=== PATIENT | female | born 1995 | race Caucasian/White ===

== ENCOUNTER → 2020-08-28 15:52 | Outpatient (CLI) | payer BC, SELFPAY ==
[2020-08-28 14:58] VITALS: BMI 20.9
[2020-08-28 16:05] LABS: Absolute Lymphocyte Count 1.63 X10^3/uL (0.83-4.51); Basophil# 0.03 X10^3/uL; Basophil% 0.3 % (0-1); Eosinophil# 0.03 X10^3/uL; Eosinophils% 0.3 % (0-5); Hematocrit 35.6 % (37-47); Hemoglobin 11.8 g/dL (12.0-15.0); Lymphocyte # 1.63 X10^3/ul (4.0); Mean Corp Hgb Conc 33.1 g/dL (32-36); Mean Corpuscular Hgb 29.3 pg (27.0-32.0); Mean Corpuscular Volume 88.3 fL (81-99); Mean Platelet Vol. 9.3 fl (6.2-12.0); Monocyte# 0.89 X10^3/uL; Monocyte% 7.6 % (0-10); NRBC Flagged by Analyzer 0 % (0-5); Neutrophil # 9.04 X10^3/uL (2.7-7.7); Neutrophil % 77.5 % (47-70); Platelet Count 194 K/mm3 (150-450); RBC Distribution Width CV 12.8 % (11.6-14.6); RBC Distribution Width SD 41.7 fl (35.1-43.9); Red Blood Count 4.03 M/mm3 (4.2-5.4); White Blood Count 11.7 K/mm3 (4.4-11.0)
[2020-08-28 17:53] LABS: Amphetamine Urine VISTA NEGATIVE (<1000 ng/mL); Barbiturate Urine VISTA NEGATIVE (< 200 ng/mL); Benzodiazepine Urine VISTA NEGATIVE (< 200 ng/mL); Cocaine Urine VISTA NEGATIVE (< 300 ng/mL); Ecstacy Urine VISTA NEGATIVE (< 500 ng/mL); Methadone Urine VISTA NEGATIVE (< 300 ng/mL); PCP Urine VISTA NEGATIVE (< 25 ng/mL); THC Urine VISTA NEGATIVE (< 50 ng/mL); Vista UDS pH Range 6
[2020-08-29 09:16] LABS: HIV - WCH Non-Reactive (Nonreactive); Hepatitis B Surface Antigen Non-Reactive (Nonreactive); Hepatitis C Antibody Non-Reactive (Nonreactive); Rubella IgG Reactive (Nonreactive)
[2020-08-29 13:38] LABS: Syphilis Antibodies Non-reactive
[2020-08-31 03:07] LABS: Chlamydia By Nucleic Acid AMP Negative (Negative)
[2020-08-31 13:15] LABS: Gonococcus By Nucleic Acid AMP Negative (Negative)
[2020-09-02 15:53] LABS: HPV Reflexed? NOT INDICATED
== END ==
PROVIDERS: Referring Provider Obstetrics & Gynecology; Visit Provider Obstetrics & Gynecology
DX: Z34.00 Encounter for supervision of normal first pregnancy, unspecified trimester (principal); Z12.4 Encounter for screening for malignant neoplasm of cervix
CPT/HCPCS: 36415; 80307; 85025; 86703; 86762; 86803; 86850; 86900; 86901; 87086; 87088; 87340; 87491; 87591; 88175; G0145

== ENCOUNTER → 2021-01-03 14:29 | Outpatient (CLI) | payer BC, SELFPAY ==
[2020-12-20 14:38] VITALS: BMI 22.6
[2021-01-03 15:42] LABS: Absolute Lymphocyte Count 1.18 X10^3/uL (0.83-4.51); Absolute Neutrophil Count 8.1 X10^3/uL (2.0-7.7); Basophil# 0.03 X10^3/uL; Basophil% 0.3 % (0-1); Eosinophil# 0.05 X10^3/uL; Eosinophils% 0.5 % (0-5); Hematocrit 32.1 % (37-47); Hemoglobin 10.5 g/dL (12.0-15.0); Lymphocyte # 1.18 X10^3/ul (0.83-4.51); Lymphocyte % 11.7 % (19-41); Mean Corp Hgb Conc 32.7 g/dL (32-36); Mean Corpuscular Hgb 29.6 pg (27.0-32.0); Mean Corpuscular Volume 90.4 fL (81-99); Mean Platelet Vol. 9.4 fl (6.2-12.0); Monocyte# 0.64 X10^3/uL; Monocyte% 6.3 % (0-10); NRBC Flagged by Analyzer 0 % (0-5); Neutrophil # 8.09 X10^3/uL (2.7-7.7); Platelet Count 205 K/mm3 (150-450); RBC Distribution Width CV 12.1 % (11.6-14.6); RBC Distribution Width SD 40.1 fl (35.1-43.9); Red Blood Count 3.55 M/mm3 (4.2-5.4); White Blood Count 10.1 K/mm3 (4.4-11.0)
[2021-01-03 16:07] LABS: Glucose Challenge Gest 1H 50g 109 mg/dL (70-140)
== END ==
PROVIDERS: Obstetrics & Gynecology; Referring Provider Obstetrics & Gynecology; Visit Provider Obstetrics & Gynecology
DX: Z34.92 Encounter for supervision of normal pregnancy, unspecified, second trimester (principal); Z13.1 Encounter for screening for diabetes mellitus; Z3A.26 26 weeks gestation of pregnancy
CPT/HCPCS: 36415; 82950; 85025; 86850; 86900; 86901

== ENCOUNTER → 2021-01-30 15:02 | Outpatient (CLI) | payer BC, SELFPAY ==
[2021-01-16 09:17] VITALS: BMI 23.6
[2021-01-30 15:30] LABS: Absolute Lymphocyte Count 1.25 X10^3/uL (0.83-4.51); Absolute Neutrophil Count 6.3 X10^3/uL (2.0-7.7); Basophil# 0.03 X10^3/uL; Basophil% 0.4 % (0-1); Eosinophil# 0.06 X10^3/uL; Eosinophils% 0.7 % (0-5); Hematocrit 32.3 % (37-47); Hemoglobin 10.8 g/dL (12.0-15.0); Lymphocyte # 1.25 X10^3/ul (0.83-4.51); Lymphocyte % 14.6 % (19-41); Mean Corp Hgb Conc 33.4 g/dL (32-36); Mean Corpuscular Hgb 30.5 pg (27.0-32.0); Mean Corpuscular Volume 91.2 fL (81-99); Mean Platelet Vol. 9.1 fl (6.2-12.0); Monocyte# 0.76 X10^3/uL; Monocyte% 8.9 % (0-10); NRBC Flagged by Analyzer 0 % (0-5); Neutrophil # 6.33 X10^3/uL (2.7-7.7); Neutrophil % 74.1 % (47-70); Platelet Count 164 K/mm3 (150-450); RBC Distribution Width CV 13.6 % (11.6-14.6); RBC Distribution Width SD 45.3 fl (35.1-43.9); Red Blood Count 3.54 M/mm3 (4.2-5.4); White Blood Count 8.5 K/mm3 (4.4-11.0)
== END ==
PROVIDERS: Referring Provider Obstetrics & Gynecology; Visit Provider Obstetrics & Gynecology
DX: O99.019 Anemia complicating pregnancy, unspecified trimester (principal); D64.9 Anemia, unspecified; Z3A.00 Weeks of gestation of pregnancy not specified
CPT/HCPCS: 36415; 85025

== ENCOUNTER → 2021-02-28 | Outpatient (CLI) | payer BC, SELFPAY | END | disposition home or self-care (01) | LOC: LABSPEC 16:39 | PROVIDERS: Visit Provider Obstetrics & Gynecology | DX: Z34.02 Encounter for supervision of normal first pregnancy, second trimester (principal) | CPT/HCPCS: 87081 ==

== ENCOUNTER 2021-03-17 19:05 | Inpatient (IN) | payer BC, SELFPAY ==
[2021-03-17] VITALS (7 sets, daily range): BP systolic 110–139; BP diastolic 66–81; PULSE 61–118; TEMP 36.3–37.5; O2SAT 85–99; BMI 23.3
[2021-03-17 19:04] LABS: ROM Internal Control Test YES-OK TO RESULT pt. (Internal QC)
[2021-03-17 19:06] LABS: ROM Patient Test POSITIVE (Negative)
[2021-03-17 19:51] LABS: Absolute Neutrophil Count 8.9 X10^3/uL (2.0-7.7); Basophil# 0.02 X10^3/uL; Basophil% 0.2 % (0-1); Eosinophil# 0.04 X10^3/uL; Eosinophils% 0.3 % (0-5); Hematocrit 36.6 % (37-47); Hemoglobin 12.2 g/dL (12.0-15.0); Lymphocyte % 13.1 % (19-41); Mean Corp Hgb Conc 33.3 g/dL (32-36); Mean Corpuscular Hgb 30.4 pg (27.0-32.0); Mean Corpuscular Volume 91.3 fL (81-99); Mean Platelet Vol. 9.5 fl (6.2-12.0); Monocyte% 7.9 % (0-10); NRBC Flagged by Analyzer 0 % (0-5); Neutrophil # 8.87 X10^3/uL (2.7-7.7); Neutrophil % 77.6 % (47-70); Platelet Count 196 K/mm3 (150-450); RBC Distribution Width CV 13.4 % (11.6-14.6); RBC Distribution Width SD 44.5 fl (35.1-43.9); Red Blood Count 4.01 M/mm3 (4.2-5.4); White Blood Count 11.4 K/mm3 (4.4-11.0)
--- NOTE | 2021-03-17 20:12 | HP.PCM.OB_ITS ---
HPI - General General Date of Admission: 03/17/21 HPI Narrative JACE MARTINEZ, is a 26 F at 39 weeks 2 days who presents with rupture of membranes Maternal Data Information LOLA Calculator Estimated Delivery Date Method Current WG Current Estimate 03/22/21 Ultrasound #1 39w 2d Other Estimates 03/30/21 LMP (Certain) 38w 1d PFSH PFS Medical History Anemia affecting Asthma Home Medications multivitamin no.47-iron fum 27 mg-folate no.1 1 mg-dha 300 mg capsule 1 cap PO DAILY 08/21/20 [History Last Taken 1 Day Ago ~03/16/21] breast pump #1 ea 11/21/20 [Rx Last Taken Unknown] ferrous sulfate 250 mg (50 mg iron) tablet,extended release 250 mg PO DAILY 01/16/21 [History Last Taken 1 Day Ago ~03/16/21] Allergy/AdvReac Type Severity Reaction Status Date / Time No Known Allergies Allergy Verified 03/17/21 19:30 Family History Mother Breast cancer, Onset Age: 36 BRAC was negative Surgical History No significant past surgical history Social History adopted: No household members: spouse housing: house current occupational status: employed current occupation: [employer] pets and animals: Yes Smoking Status: Never smoker second hand exposure: No alcohol intake: current alcohol intake frequency: holidays/special occasions only substance use type: does not use seatbelt use: always do you feel safe at home: Yes additional social history: - Faby ([employer]) History 1 Elective abortions Hx Para 0 Spontaneous abortions Hx # Term Pregnancies Ectopic pregnancies Hx # Pregnancies Multiple births # of living children Visit Details Expected Delivery Route/Plan Labor Preferences- CB/BF classes: done labor support person: faby, mom maybe after- Elise labor intervention preferences: discussed and no specific pain management options preferred: epidural cut cord/dad catch: yes : yes PP control planned: considering mini pill discussed possible routes of delivery and associated risks: discussed possible delivery modalities and possible indications for each including R/B/A of , VAVD, and CS. questions answered. special requests: none Plans covid vaccine: non immune flu vaccine: tdap vaccine: given rhogam: [] LARC form signed: 01/16 movement and labor precautions reviewed. Problem list reviewed and updated with the most current plan of care details and appropriate orders placed. Relevant counseling for the gestational age provided. Continue routine care and follow up unless otherwise noted in visit notes/problem list details OB Flowsheet Initial Weight: 125 lb Date -?-?-?-?-?-?-?-?-?-?-?-?- EGA Weight BP Urine Prot -?-?-?--?-?-?-?-?-?-?-?-?- Glucose FHR FuHt Pres Dilation -?-?-?-?-?-?-?-?-?--?-?-?- Effaced St Visit Note 09/26/20 -?-?-?-?-?-?-?-?-?-?-?-?- 14w 5d 125 lb 6 oz (+6 oz) 120/74 -?-?-?-?-?-?-?-?-?-?-?-?- 155 -?-?-?-?-?-?-?-?-?-?-?-?- GP - no cramping or bleeding. Feeling better aside from fatigue. PRR. Anatomy scan ordered. 10/24/20 -?-?-?-?-?-?-?-?-?-?-?-?- 18w 5d 129 lb (+4 lb) Negative -?-?-?-?-?-?-?-?-?-?-?-?- Negative 145 -?-?-?-?-?-?-?-?-?-?-?-?- SM- doing well n o complaints 11/21/20 -?-?-?-?-?-?-?-?-?-?-?-?- 22w 5d 132 lb (+7 lb) 120/78 Negative -?-?-?-?-?-?-?-?-?-?-?-?- Negative 150 -?-?-?-?-?-?-?-?-?-?-?-?- GP - no ctx, LOF , VB, DFM. Discussed 3rd trimester labs - needs at 28w due to Rh negative 12/20/20 -?-?-?-?-?-?-?-?-?-?-?-?- 26w 6d 136 lb (+11 lb) 128/60 Negative -?-?-?-?-?-?-?-?-?-?-?-?- Negative 160 -?-?-?-?-?-?-?-?-?-?-?-?- SM- no vb lof go od fm no regular ctx. 01/03/21 -?-?-?-?-?-?-?-?-?-?-?-?- 28w 6d 137 lb 6 oz (+12 lb 6 oz) 132/72 Negative -?-?-?-?-?-?-?-?-?-?-?-?- Negative 140 28 -?-?-?-?-?-?-?-?-?-?-?-?- GP - no LOF, VB, DFM, ctx. Denies complaints. 28w labs pending. Rhogam and TDAP given but reports spouse also Rh negative. 01/16/21 -?-?-?-?-?-?-?-?-?-?-?-?- 30w 5d 138 lb (+13 lb) 124/78 124/78 -?-?-?-?-?-?-?-?-?-?-?-?- 145 30 -?-?-?-?-?-?-?-?-?-?-?-?- GP - no LOF, VB, DFM, ctx. Discussed control - LARC form signed. 01/30/21 -?-?-?-?-?-?-?-?-?-?-?-?- 32w 5d 140 lb 4 oz (+15 lb 4 oz) 138/70 Negative -?-?-?-?-?-?-?-?-?-?-?-?- Negative 140 32 -?-?--?-?-?-?-?-?-?-?-?-?- GP - no LOF, VB, DFM, ctx. Has red, raised lesion that appeared 2w ago - referred to derm 02/14/21 -?-?-?-?-?-?-?-?-?-?-?-?- 34w 6d 140 lb (+15 lb) 100/60 Negative -?-?-?-?-?-?-?-?-?-?-?-?- Negative 140 34 -?-?-?-?-?-?-?-?-?-?-?-?- SM- no vb lof go od fm no regular ctx discussed delivery and labor preferences, vaccination information 02/28/21 -?-?-?-?-?-?-?-?-?-?-?-?- 36w 6d 142 lb (+17 lb) 120/78 Negative -?-?-?-?-?-?-?-?-?-?-?-?- Negative 145 36 -?-?-?-?-?-?-?-?-?-?-?-?- GP - no LOF, VB, DFM, ctx. Denies complaints. GBS done today. 03/07/21 -?-?--?-?-?-?-?-?-?-?-?-?- 37w 6d 144 lb 6 oz (+19 lb 6 oz) 120/76 Negative -?-?-?-?-?-?-?-?-?-?-?-?- Negative 155 37 Cephalic 1 -?-?-?-?-?-?-?-?-?-?-?-?- 50 -3 GP - no LO F, VB, DFM, ctx. Denies complaints. 03/13/21 -?-?-?-?-?-?-?-?-?-?-?-?- 38w 5d 144 lb 4 oz (+19 lb 4 oz) 128/80 -?-?-?-?-?-?-?-?-?-?-?-?- 155 38 Cephalic 1 -?-?-?-?-?-?-?-?-?-?-?-?- 50 -3 GP - no LO F, VB, DFM, ctx. 03/17/21 -?-?-?-?-?-?-?-?--?-?-?-?- 39w 2d 140 lb (+15 lb) 115/68 -?-?-?-?-?-?-?-?-?-?-?-?- -?-?-?-?-?-?-?-?-?-?-?-?- NST FHR Rate Baby A Baseline: 140 Variability:: Moderate Accelerations:: 15 x 15 Decelerations:: None NST Reactive:: Yes FHR Category:: Category I Uterine Activity:: irregular ROS Eyes Eyes: Reports systems reviewed and no addt'l complaints, except as documented ENT HEENT: Reports systems reviewed and no addt'l complaints, except as documented Cardiovascular Cardiovascular: Reports systems reviewed and no addt'l complaints, except as documented Respiratory/Chest Respiratory/Chest: Reports systems reviewed and no addt'l complaints, except as documented Gastrointestinal Gastrointestinal: Reports systems reviewed and no addt'l complaints, except as documented Genitourinary Genitourinary: Reports systems reviewed and no addt'l complaints, except as documented Musculoskeletal Musculoskeletal: Reports systems reviewed and no addt'l complaints, except as documented Integumentary Integumentary: Reports systems reviewed and no addt'l complaints, except as documented Neurologic Neurologic: Reports systems reviewed and no addt'l complaints, except as documented Psychiatric Psychiatric: Reports systems reviewed and no addt'l complaints, except as documented Endocrine Endocrinology: Reports systems reviewed and no addt'l complaints, except as documented Hematologic/Lymphatic Hematologic/Lymphatic: Reports systems reviewed and no addt'l complaints, except as documented Allergic/Immunologic Allergic/Immunologic: Reports systems reviewed and no addt'l complaints, except as documented Vital Signs Vital Signs Vital Signs: 03/17/21 20:00 03/17/21 20:01 Temperature 99.5 F H Temperature Source Temporal Pulse Rate 74 Blood Pressure 115/68 BP Systolic 115 BP Diastolic 68 Weight Weight: 140 lb Body Mass Index (BMI) 23.3 Physical Exam Const alert, oriented x3, no apparent distress, average body habitus, healthy appearing and well nourished HEENT normocephalic and moist oral mucous membranes Head and Scalp: atraumatic Eyes PERRL and EOMs intact bilaterally Neck full ROM Resp normal respiratory effort, no retractions and no use of accessory muscles Cardio regular rate and regular rhythm GI soft to palpation, non-tender and non-distended Extremity normal to inspection and full ROM Skin no rashes or lesions noted Neuro no focal motor deficits and no sensory deficits noted Psych mental status grossly normal, affect normal, speech normal and activity/motor behavior normal Labs Labs Labs: Blood Type A NEGATIVE Antibody Screen NEGATIVE Hct 36.6 % (37-47) L Hgb 12.2 g/dL (12.0-15.0) Syphilis Total Ab Non-reactive Rubella IgG Antibody Reactive (Nonreactive) Hep Bs Antigen Non-Reactive (Nonreactive) Neisseria gonorrhoeae DNA (WARNER) Negative (Negative) HIV 1&2 Antibody Non-Reactive (Nonreactive) Glucose 1 Hr 50 gm 109 mg/dL (70-140) Assessment & Plan (1) Full-term premature rupture of membranes: QUALIFIERS: PROM onset of labor timing: unspecified duration between rupture of membranes and onset of labor Qualified Code(s): O42.92 - Full-term premature rupture of membranes, unspecified as to length of time between rupture and onset of labor PLAN: Patient presents with term PROM, plan expectant management for , pitocin if needed. Pain management: plans epidural. GBS negative. Management of any complications: none I have reviewed the [facility], [facility] and made any clinically relevant updates. (2) Skin lesion: COMMENT: New onset lesion on right arm that appeared 2 weeks ago. Raised and red in appearance. Has had multiple episodes of bleeding. Removed by dermatology (3) Anemia affecting : QUALIFIERS: Trimester: third trimester Qualified Code(s): O99.013 - Anemia complicating , third trimester COMMENT: Start iron, recheck cbc in 1 month (4) Rh negative status during : QUALIFIERS: Trimester: third trimester Qualified Code(s): O26.893 - Other specified related conditions, third trimester; Z67.91 - Unspecified blood type, Rh negative COMMENT: rhogam at 28 weeks and PRN bleeding. (5) Supervision of normal first : QUALIFIERS: Trimester: second trimester Qualified Code(s): Z34.02 - Encounter for supervision of normal first , second trimester COMMENT: PRR [place]! LOLA: 03/30/21 surprise Spouse: Faby (6) Asthma: QUALIFIERS: Asthma severity: mild Asthma persistence: intermittent Asthma complication type: uncomplicated Qualified Code(s): J45.20 - Mild intermittent asthma, uncomplicated COMMENT: no active symptoms, resolved since age 15 (7) : QUALIFIERS: Weeks of gestation: 38 weeks Qualified Code(s): Z3A.38 - 38 weeks gestation of COMMENT: declines genetic, ntd, and carrier testing 10/31/20 - NL anatomy scan; GBS NEG
[2021-03-17] MEDS: Lactated Ringers 1,000 ML 50 ML IV (22:02)
[2021-03-17] MEDS: Oxytocin 30 units/NS 500 ml 30 UNITS/500 ML IV.SOLN IV (22:02)
[2021-03-18] VITALS (64 sets, daily range): BP systolic 76–138; BP diastolic 52–78; PULSE 53–106; RESP 14–18; TEMP 36.7–37.9; O2SAT 84–100
[2021-03-18] MEDS: Acetaminophen 500 MG Tablet PO (03:45)
[2021-03-18] MEDS: Ondansetron 4 MG/2 ML Vial IV (05:57)
[2021-03-18] MEDS: Lactated Ringers 500 ML 999 ML IV (06:19)
[2021-03-18] MEDS: fentaNYL-bupivacaine (epidural) 100 ML BAG EPIDURAL ×2 (06:59→11:08)
[2021-03-18] MEDS: Lactated Ringers 1,000 ML 200 ML IV (09:54)
[2021-03-18] MEDS: Oxytocin 30 units/NS 500 ml 30 UNITS/500 ML IV.SOLN 334 UNITS IV (15:25)
--- NOTE | 2021-03-18 15:38 | EX.PCM.OBRPT ---
Assessment & Plan (1) Spontaneous vaginal delivery: (2) Full-term premature rupture of membranes: QUALIFIERS: PROM onset of labor timing: unspecified duration between rupture of membranes and onset of labor Qualified Code(s): O42.92 - Full-term premature rupture of membranes, unspecified as to length of time between rupture and onset of labor (3) Anemia affecting : QUALIFIERS: Trimester: third trimester Qualified Code(s): O99.013 - Anemia complicating , third trimester COMMENT: Start iron, recheck cbc in 1 month (4) Rh negative status during : QUALIFIERS: Trimester: third trimester Qualified Code(s): O26.893 - Other specified related conditions, third trimester; Z67.91 - Unspecified blood type, Rh negative COMMENT: rhogam at 28 weeks and PRN bleeding. (5) Supervision of normal first : QUALIFIERS: Trimester: second trimester Qualified Code(s): Z34.02 - Encounter for supervision of normal first , second trimester COMMENT: PRR [place]! LOLA: 03/30/21 surprise Spouse: Erick (6) Asthma: QUALIFIERS: Asthma severity: mild Asthma persistence: intermittent Asthma complication type: uncomplicated Qualified Code(s): J45.20 - Mild intermittent asthma, uncomplicated COMMENT: no active symptoms, resolved since age 15 (7) : QUALIFIERS: Weeks of gestation: 38 weeks Qualified Code(s): Z3A.38 - 38 weeks gestation of COMMENT: declines genetic, ntd, and carrier testing 10/31/20 - NL anatomy scan; GBS NEG Maternal Data Information LOLA Calculator Estimated Delivery Date Method Current WG Current Estimate 03/22/21 Ultrasound #1 39w 3d Other Estimates 03/30/21 LMP (Certain) 38w 2d Vaginal Delivery Maternal Presentation Maternal Presentation: Spontaneous Rupture of Membranes Maternal Presentation: 26-year-old G1, P0 at 39 weeks gestation admitted for augmentation of labor for PROM. She was augmented with Pitocin. Operative Information Date of Procedure: 03/18/21 Pre-Operative Diagnosis: Term , SROM Post-Operative Diagnosis: Same Surgery / Procedure Performed: Spontaneous Vaginal Delivery Type of Anesthesia: Epidural Drain: Thompson to straight drain Estimated Blood Loss: 200 Findings Description of Procedure: Patient began pushing and delivered the head in the ANKUSH presentation. The head was delivered atraumatically and a loose nuchal cord was noted and delivered through. The anterior and posterior shoulders delivered without complication followed by the rest of the infant and the was placed on the maternal abdomen. Delayed cord clamping was employed for approximately 60 seconds. Cord was clamped and cut and gentle traction was applied to the cord and the placenta delivered spontaneously immediately following it was noted to be intact with three-vessel cord. The perineum and vagina were inspected and a midline second-degree perineal laceration was noted and repaired in the standard fashion using 2-0 Vicryl. EBL was [100 cc]. Patient and infant tolerated delivery well. Presentation: Vertex and ANKUSH Amniotic Membrane Rupture Type: Spontaneous Amniotic Fluid Description: Clear Placenta Disposition: [facility] Cord Vessel Description: 3 Vessels Cord Entanglement: Around neck x 1, loose Nuchal Cord Compression: Without compression A Gender: Female Delayed Cord Clamping: Yes Post Vaginal Delivery Medications Given After Delivery: IV Pitocin Episiotomy Description: None Laceration: Midline, Perineal Extension/lac and 2nd degree Complication Complications: None Procedures Urinary/Genital [id number]: [id number] [facility]aginal Delivery [facility]
--- NOTE | 2021-03-18 15:42 | PCM.DC ---
Discharge Instructions Diet Discharge Diet: No restrictions Activity Discharge Activity: Return to Normal Activity, May Not Drive (while taking narcotic pain medications.) and May Shower May resume sexual activity in: 4-6 weeks Dressing / Incision Call your doctor if your incision/area has: Continuous Slow Oozing, Sudden Increased Bleeding, Increased Pain/ Swelling, Increased Redness and Foul Smelling Discharge Follow Up Care When: Call to make an appointment with your doctor in 6 weeks. If you had elevated Blood Pressure or 4th degree laceration you will need to be seen in 2 weeks. Test Results: Test results from this visit will be discussed in further detail at your follow-up appointment, if applicable. Discharge Plan Admission Admit Date/Time: 03/17/21 19:05 Attending Provider: Nicole Borges Primary Care Provider: Care Physician,No Primary Instructions Patient Instructions: After a Vaginal Discharge Orders/Prescriptions Prescriptions: New ibuprofen 800 mg tablet 800 mg PO Q8H PRN (Reason: pain) Qty: 60 RF: 1 Continued PNV-DHA 27 mg iron-1 mg -300 mg capsule 1 cap PO DAILY RF: 0 (DME) breast pump Device See Rx Instructions .ROUTE .MEDSUPPLY Qty: 1 RF: 0 ferrous sulfate 250 mg (50 mg iron) tablet extended release 250 mg PO DAILY RF: 0 Referrals / Follow Up: Care Physician,Lynne Primary [Primary Care Provider] -
[2021-03-18] MEDS: Acetaminophen 500 MG Tablet 1000 MG PO (16:01)
[2021-03-18] MEDS: 0.9% Saline Lock 10 ML Syringe IV ×2 (18:13→20:31)
--- NOTE | 2021-03-18 19:47 | NURSING ---
Pt. reports desire to get out of bed and try to void. States her legs are feeling better with just mild numbness in her bottom. Ambulated well to restroom with standby assist x1 of this RN. Pt. sat on toilet and immediately voided over 1000cc of clear urine. This RN was getting ready to educate pt. on noa-care when she reported feeling lightheaded and said she felt like she was going to pass out. This RN held onto pt. and pulled the staff assist alarm. Shaneka, Tom, and CHartRKb came to room and helped to hold pt. Pt. seemingly passed out, briefly not responding to RNs, but within a minute was able to verbalize her name and location. Pt. drank orange juice then was pivoted to a wheelchair and taken back to bed. Pt. drank more orange juice and water, but denied a snack as she had just finished dinner. Pt. denies double or blurred vision and does not feel like the room is spinning. Only states she is very tired. Vital signs monitored closely and this RN remains in room with pt. Noa-care performed in bed and fan given and cool wash cloth placed on pt's forehead.
[2021-03-18 20:28] LABS: Absolute Lymphocyte Count 0.87 X10^3/uL (0.83-4.51); Basophil# 0.03 X10^3/uL; Basophil% 0.2 % (0-1); Hematocrit 32.4 % (37-47); Lymphocyte # 0.87 X10^3/ul (0.83-4.51); Lymphocyte % 4.4 % (19-41); Mean Corpuscular Hgb 31.1 pg (27.0-32.0); Mean Corpuscular Volume 91.5 fL (81-99); Mean Platelet Vol. 9.5 fl (6.2-12.0); Monocyte# 1.81 X10^3/uL; Monocyte% 9.1 % (0-10); NRBC Flagged by Analyzer 0 % (0-5); Neutrophil # 16.95 X10^3/uL (2.7-7.7); Neutrophil % 85.6 % (47-70); POSITIVE DIFFERENTIAL YES; Platelet Count 151 K/mm3 (150-450); RBC Distribution Width CV 13.4 % (11.6-14.6); RBC Distribution Width SD 45.5 fl (35.1-43.9); Red Blood Count 3.54 M/mm3 (4.2-5.4); White Blood Count 19.8 K/mm3 (4.4-11.0)
[2021-03-18] MEDS: Lactated Ringers 1,000 ML 999 ML IV (20:31)
[2021-03-18 20:38] LABS: Differential Indicated SCAN CRITERIA MET
[2021-03-18 20:55] LABS: Differential Comment SCANNED
[2021-03-19 00:36] VITALS: BP 120/70; PULSE 77; PULSE 94; RESP 16; TEMP 37.1; O2SAT 100
[2021-03-19] MEDS: Senna/Docusate Sodium 1 Tablet PO (00:42)
[2021-03-19] MEDS: Ibuprofen 600 MG Tablet PO ×2 (00:42→10:28)
[2021-03-19 03:04] VITALS: BP 101/55; PULSE 74; RESP 16; TEMP 37; O2SAT 100
[2021-03-19] MEDS: Acetaminophen 500 MG Tablet 1000 MG PO (05:23)
--- NOTE | 2021-03-19 07:55 | PN.OBGYN_ITS ---
Subjective Subjective Patient doing well without complaints. Tolerating PO. Ambulating and voiding without difficulty. Feeding well. Denies chest pain, shortness of breath, calf pain/swelling, fevers, chills, lightheadedness. Objective Data Objective Data Vital Signs: Vital Signs Temp Pulse Resp BP Pulse Ox 98.6 F 74 16 101/55 L 100 03/19/21 03:04 03/19/21 03:04 03/19/21 03:04 03/19/21 03:04 03/19/21 03:04 Oxygen Delivery Method Room Air Weight: 140 lb Body Mass Index (BMI) 23.3 Intake & Output: Intake and Output for Last 24 Hours 03/17/21 03/18/21 03/19/21 23:59 23:59 23:59 Intake Total 3.43 / 3.43 4173.13 / 4173.13 Output Total 1600 / 1600 Balance 3.43 / 3.43 2573.13 / 2573.13 Lab / Micro Data Result Diagrams: 03/18/21 20:18 Labs: Laboratory Results - last 24 hr 03/18/21 20:18: WBC 19.8 H, RBC 3.54 L, Hgb 11.0 L, Hct 32.4 L, MCV 91.5, MCH 31.1, MCHC 34.0, RDW Std Deviation 45.5 H, RDW Coeff of Benny 13.4, Plt Count 151, MPV 9.5, Immature Gran % (Auto) 0.700, Neut % (Auto) 85.6 H, Lymph % (Auto) 4.4 L, [place] % (Auto) 9.1, Eos % (Auto) 0.0, Baso % (Auto) 0.2, Absolute Neuts (auto) 17.0 H, Absolute Lymphs (auto) 0.87, Nucleated RBC % 0, Differential Comment S CANNED, Diff Path Review May foll Micro: Microbiology 03/17/21 19:38 Nasal Secretion SARS-CoV-2 Antigen (Rapid) - Final Physical Exam Const alert and oriented x3 HEENT normocephalic Eyes PERRL Neck full ROM Resp normal respiratory effort GI soft to palpation GI Narrative: FF below U Assessment & Plan (1) Spontaneous vaginal delivery: COMMENT: GP PROM 03/18 Girl-Twila PLAN: s/p PPD # 1 1. routine post delivery care 2. breast feeding- support given 3. rh negative 4. rubella immune 5. home today
[2021-03-19 10:00] VITALS: BP 116/61; PULSE 74; RESP 16; TEMP 36.6; O2SAT 99
[2021-03-19 10:19] VITALS: BP 116/61; PULSE 75; PULSE 86; O2SAT 99
[2021-03-19 12:42] LABS: Pathologist Review Reviewed
[2021-03-19 13:30] VITALS: BP 107/63; PULSE 72; RESP 18; TEMP 36.6; O2SAT 100
[2021-03-19 13:54] VITALS: BP 107/63; PULSE 72
== END 2021-03-19 17:30 | disposition home or self-care (01) | DRG 807 ==
LOC: WPOUT 19:12 → WP 03-18 10:01
PROVIDERS: Admitting Provider Obstetrics & Gynecology; Visit Provider Obstetrics & Gynecology
DX: O42.92 Full-term premature rupture of membranes, unspecified as to length of time between rupture and onset of labor (principal); Z37.0 Single live birth; Z3A.39 39 weeks gestation of pregnancy; O99.013 Anemia complicating pregnancy, third trimester; D64.9 Anemia, unspecified; L98.9 Disorder of the skin and subcutaneous tissue, unspecified; J45.20 Mild intermittent asthma, uncomplicated; O99.52 Diseases of the respiratory system complicating childbirth; O69.81X0 Labor and delivery complicated by cord around neck, without compression, not applicable or unspecified; O70.1 Second degree perineal laceration during delivery
CPT/HCPCS: 59025; 59050; 84112; 85025; 86850; 86900; 86901; 87426; 99218; J7120; A4216; G0378; J2405

== ENCOUNTER → 2023-01-11 | Outpatient (CLI) | payer BC, SELFPAY ==
[2023-01-11 16:31] LABS: Absolute Lymphocyte Count 1.87 X10^3/uL (0.83-4.51); Absolute Neutrophil Count 7.1 X10^3/uL (2.0-7.7); Basophil# 0.03 X10^3/uL; Basophil% 0.3 % (0-1); Eosinophil# 0.05 X10^3/uL; Eosinophils% 0.5 % (0-5); Hematocrit 33.9 % (37-47); Hemoglobin 11.7 g/dL (12.0-15.0); Lymphocyte # 1.87 X10^3/ul (0.83-4.51); Lymphocyte % 19.3 % (19-41); Mean Corp Hgb Conc 34.5 g/dL (32-36); Mean Corpuscular Hgb 30.4 pg (27.0-32.0); Mean Corpuscular Volume 88.1 fL (81-99); Mean Platelet Vol. 9.9 fl (6.2-12.0); Monocyte# 0.57 X10^3/uL; Monocyte% 5.9 % (0-10); NRBC Flagged by Analyzer 0 % (0-5); Neutrophil # 7.12 X10^3/uL (2.7-7.7); Neutrophil % 73.6 % (47-70); Platelet Count 191 K/mm3 (150-450); RBC Distribution Width CV 13.2 % (11.6-14.6); RBC Distribution Width SD 42.6 fl (35.1-43.9); Red Blood Count 3.85 M/mm3 (4.2-5.4); White Blood Count 9.7 K/mm3 (4.4-11.0)
[2023-01-11 18:26] LABS: HIV - WCH Non-Reactive (Nonreactive); Hepatitis B Surface Antigen Non-Reactive (Nonreactive); Hepatitis C Antibody Non-Reactive (Nonreactive); Rubella IgG Reactive (Nonreactive); Syphilis Antibodies Non-reactive
[2023-01-13 05:07] LABS: V-Zoster IgG (Immunity) 717 index (Immune >165)
== END | disposition home or self-care (01) ==
PROVIDERS: Referring Provider Registered Nurse; Visit Provider Registered Nurse
DX: Z34.90 Encounter for supervision of normal pregnancy, unspecified, unspecified trimester (principal); Z36.87 Encounter for antenatal screening for uncertain dates
CPT/HCPCS: 36415; 85025; 86703; 86762; 86780; 86787; 86803; 86850; 86900; 86901; 87086; 87340; 87491; 87591

== ENCOUNTER → 2023-05-28 | Outpatient (CLI) | payer BC, SELFPAY ==
[2023-05-28 17:01] LABS: Absolute Lymphocyte Count 1.74 X10^3/uL (0.83-4.51); Absolute Neutrophil Count 7.9 X10^3/uL (2.0-7.7); Basophil# 0.04 X10^3/uL; Basophil% 0.4 % (0-1); Eosinophil# 0.08 X10^3/uL; Eosinophils% 0.7 % (0-5); Hematocrit 36.1 % (37-47); Hemoglobin 12.1 g/dL (12.0-15.0); Lymphocyte # 1.74 X10^3/ul (0.83-4.51); Lymphocyte % 16.3 % (19-41); Mean Corp Hgb Conc 33.5 g/dL (32-36); Mean Corpuscular Volume 92.6 fL (81-99); Mean Platelet Vol. 9.1 fl (6.2-12.0); Monocyte# 0.82 X10^3/uL; Monocyte% 7.7 % (0-10); NRBC Flagged by Analyzer 0 % (0-5); Neutrophil # 7.91 X10^3/uL (2.7-7.7); Neutrophil % 73.9 % (47-70); Platelet Count 192 K/mm3 (150-450); RBC Distribution Width CV 13.2 % (11.6-14.6); RBC Distribution Width SD 43.8 fl (35.1-43.9); White Blood Count 10.7 K/mm3 (4.4-11.0)
[2023-05-28 17:06] LABS: Glucose Challenge Gest 1H 50g 129 mg/dL (70-140)
[2023-05-28 18:42] LABS: HIV - WCH Non-Reactive (Nonreactive); Syphilis Antibodies Non-reactive
== END | disposition home or self-care (01) ==
LOC: LAB 15:18
PROVIDERS: Referring Provider Registered Nurse; Visit Provider Registered Nurse
DX: Z13.1 Encounter for screening for diabetes mellitus (principal); Z3A.27 27 weeks gestation of pregnancy
CPT/HCPCS: 36415; 82950; 85025; 86703; 86780; 86850; 86900; 86901

== ENCOUNTER → 2023-07-23 | Outpatient (CLI) | payer BC, SELFPAY ==
--- OUTSIDE RECORDS SUMMARY | 2023-07-23 17:01 | XMS RPT_ITS | CCD ---
Author Name Unknown Address [address] [place] [address] Organization [facility] Care Team Providers Care Luggage Maker Name Role Phone Unavailable Primary Care Provider ADRIAN Coello Referring Unavailable FELICE PRIMARY CAREMD Primary Care Unavailable CINDY WHIPPLE Referring CARMEN Zuniga Attending Tavares Alvarez PRIMARY CAREMD Primary Care Unavailable CINDY WHIPPLE Referring CARMEN Zuniga Attending Tavares harris Medications Current Medications Medication Drug Class(es) Dates Sig (Normalized) Sig (Original) amoxicillin 500 mg oral capsule (1 source) Penicillin-class Antibacterial Start: 11-07-2022 End: 11-17-2022 take 1 capsule by mouth twice daily amoxicillin (AMOXIL) 500 mg capsule Take 1 capsule by mouth twice daily for 10 days. 20 capsule 0 11/07/2022 11/17/2022 Active Completed/Discontinued Medications Medication Drug Class(es) Dates Sig (Normalized) Sig (Original) norethindrone 0.35 mg oral tablet (5 sources) Start: 05-20-2022 take 1 tablet by mouth once daily DEBLITANE 0.35 mg tablet Take 1 tablet by mouth once daily. 0 05/20/2022 Active Problems Problem Classification Problem Date Documented Da te Episodic/Chronic Other lower respiratory disease (2 sources) Cough; Translations: [Acute cough] Episodic Other upper respiratory infections (1 source) Sore throat symptom; Translations: [Acute pharyngitis, unspecified] Episodic Residual codes; unclassified (2 sources) Generalized aches and pains; Translations: [Pain, unspecified] Episodic Residual codes; unclassified (1 source) History of drug therapy; Translations: [Personal history of other drug therapy] Episodic Residual codes; unclassified (1 source) Pain, unspecified; Translations: [Body aches] Onset: 06-17-2022 Episodic Unclassified (1 source) Acute cough; Translations: [Acute cough] Onset: 06-17-2022 Results Test Name Value Interpretation Reference Range Facil ity Vital Signs Date Time Vital Sign Value Performing Clinician Brandi castro 11-07-2022 08:18-0400 Body temperature 97.39 [degF] Walk [facility] 11-07-2022 08:18-0400 Body weight 54.88 kg Walk [facility] 11-07-2022 08:18-0400 Diastolic blood pressure 87 mm[Hg] Walk [facility] 11-07-2022 08:18-0400 Heart rate 117 /min Walk [facility] 11-07-2022 08:18-0400 Respiratory rate 18 /min Walk [facility] 11-07-2022 08:18-0400 SaO2% (BldA) [Mass fraction] 100 % Walk [facility] 11-07-2022 08:18-0400 Systolic blood pressure 120 mm[Hg] Walk [facility] 06-16-2022 18:20-0500 Body height 162.6 cm Adrianmonie Romeroaugh PA-C Work Phone: [facility] 06-16-2022 18:20-0500 Body temperature 99.7 [degF] Adrian Slabaugh PA-C Work Phone: [facility] 06-16-2022 18:20-0500 Body weight 64.41 kg Adrian Slabaugh PA-C Work Phone: [facility] 06-16-2022 18:20-0500 Diastolic blood pressure 76 mm[Hg] Adrian Slabaugh PA-C Work Phone: [facility] 06-16-2022 18:20-0500 Heart rate 103 /min Adrian Slabaugh PA-C Work Phone: [facility] 06-16-2022 18:20-0500 Respiratory rate 18 /min Adrian Slabaugh PA-C Work Phone: [facility] 06-16-2022 18:20-0500 SaO2% (BldA) [Mass fraction] 98 % Adrian Cortes PA-C Work Phone: [facility] 06-16-2022 18:20-0500 Systolic blood pressure 124 mm[Hg] Adrian Cortes PA-C Work Phone: [facility] Encounters Encounter Date Encounter Type Care Provider Facility Start: 05-17-2023 End: 05-17-2023 ambulatory NO PRIMARY CARE [facility] Start: 03-22-2023 End: 03-22-2023 ambulatory NO PRIMARY CARE [facility] Start: 11-07-2022 End: 11-07-2022 ambulatory Facility:[facility] Start: 11-07-2022 End: 11-07-2022 Patient encounter procedure [facility] Procedures Date Procedure Procedure Detail Performing Clinician Start: 11-07-2022 STREP A MOLECULAR (POC) Lore Kumar APRN.CNP Work Phone: Start: 06-17-2022 Radiologic exam ches t 2 views Adrian Cortes PA-C Work Phone: Plan of Treatment Date Care Activity Detail Author Start: 02-26-2023 Influenza vaccination INFLUENZA (Season Ended) [facility] Start: 06-28-2022 DEPRESSION ASSESSMENT DEPRESSION ASSESSMENT [facility] Start: 02-26-2022 Influenza vaccination INFLUENZA (#1) [facility] Start: 06-28-2021 DEPRESSION ASSESSMENT DEPRESSION ASSESSMENT [facility] Start: 2018 PAP TESTING PAP TESTING [facility] Start: 2016 Urine microalbumin profile DTAP,TDAP,TD (1 - Tdap) [facility] Start: 2015 HEPATITIS C SCREENING HEPATITIS C SCREENING [facility] Start: 2015 HIV SCREENING HIV SCREENING [facility] Start: 2011 PEDS TO ADULT TRANSITION ANNUAL ASSESSMENT PEDS TO ADULT TRANSITION ANNUAL ASSESSMENT [facility] Start: 2009 PEDS TO ADULT TRANSITION INITIAL DISCUSSION PEDS TO ADULT TRANSITION INITIAL DISCUSSION [facility] Start: 2008 HPV VACCINE (1 - 2-dose series) HPV VACCINE (1 - 2-dose series) [facility] Start: 1997 COVID-19 VACCINE (#1) COVID-19 VACCINE (#1) [facility] Start: 1997 HEPATITIS B (1 of 3 - 3-dose series) HEPATITIS B (1 of 3 - 3-dose series) [facility] Influenza virus A an d B RNA and SARS-CoV-2 (COVID-19) N gene panel - Respiratory specimen by WARNER with probe detection COVID WITH FLUA+B, ROUTINE Microbiology Routine Body aches Antibiotic treatment within past 2 months Ordered: 06/16/2022 [facility] Work Phone: Payers Date Payer Category Payer Unknown [employer]UE C[employer] PPO OOS [id number] 2020-Present [phone] [address] [place] [address] PPO [id number] 2020 Unknown [id number] 1997 Unknown [id number] 1997 Unknown [id number] Social History Date Type Detail Facility Start: 06-16-2022 Tobacco smoking stat [facility] Tobacco smoking consumption unknown [facility] Start: 1997 Sex Assigned At Not on file C [facility] Clinical Notes 04-16-2022 to 11-07-2022 Lore Kumar APRN.GEAR CUTTING MACHINE SET UP OPERATOR - 11/07/2022 8:24 AM EDTTelephone Encounter - Sherry Zepeda APRN.LUI - 06/17/2022 5:21 PM RT Paulie(R) - 06/17/2022 4:15 PM ESTPatient Instructions Note Date & Type Note Facility 11-07-2022 Note HNO ID: [id number] Author: Lore Kumar APRN.GEAR CUTTING MACHINE SET UP OPERATOR Service: ? Author Type: Nurse Practitioner Type: Progress Notes Filed: 11/07/2022 8:35 AM Note Text: Subjective HPI Esther presets today with several days of sorethroat, and gland swelling on her right side. She has had a fever for a few days. She states she is eating and drinking, denies n/v/d. She states her daughter was also sick, but seems to be improved over the last few day. She is not using any medication at this time No past medical history on file. No past surgical history on file. ALLERGIES Patient has no known allergies. MEDICATIONS DEBLITANE 0.35 mg tablet Take 1 tablet by mouth once daily. No family history on file. Review of Systems Constitutional: Positive for fever. HENT: Positive for sore throat. All other systems reviewed and are negative. Objective Physical Exam Vitals and nursing note reviewed. Constitutional: Appearance: Normal appearance. HENT: Head: Normocephalic and atraumatic. Right Ear: Tympanic membrane, ear canal and external ear normal. Left Ear: Tympanic membrane, ear canal and external ear normal. Nose: Nose normal. Mouth/Throat: Mouth: Mucous membranes are dry. Pharynx: Oropharyngeal exudate (on right tonsilar pillar) and posterior oropharyngeal erythema present. Eyes: Pupils: Pupils are equal, round, and reactive to light. Cardiovascular: Rate and Rhythm: Normal rate and regular rhythm. Pulses: Normal pulses. Heart sounds: Normal heart sounds. No murmur heard. Pulmonary: Effort: Pulmonary effort is normal. Breath sounds: Normal breath sounds. Abdominal: General: Abdomen is flat. Palpations: Abdomen is soft. Musculoskeletal: General: Normal range of motion. Cervical back: Normal range of motion and neck supple. Tenderness (right) present. No rigidity. Lymphadenopathy: Cervical: Cervical adenopathy present. Skin: General: Skin is warm and dry. Capillary Refill: Capillary refill takes less than 2 seconds. Neurological: Mental Status: She is alert. Psychiatric: Mood and Affect: Mood normal. ASSESSMENT/PLAN: 1. Sorethroat - ICD9: 462, ICD10: J02.9 - Rapid Strep positive in the office today - antibiotic as written and Amoxicillin for 10 days. - Discussed supportive care treatment with fluids, rest and analgesia. - The patient may also use increase fluids . - Contagious dz precautions discussed- including considered contagious until on antibiotics for 24 hours - The patient should follow up in one day if symptoms persist or worsen Pt understands to start antibitoic today, if not improving in the next 24 hours needs to be seen - STREP A MOLECULAR (POC) Lore Kumar APRN.[facility] 11-07-2022 History of Presen t illness Narrative Subjective HPI Esther presets today with several days of sorethroat, and gland swelling on her right side. She has had a fever for a few days. She states she is eating and drinking, denies n/v/d. She states her daughter was also sick, but seems to be improved over the last few day. She is not using any medication at this time No past medical history on file. No past surgical history on file. ALLERGIES Patient has no known allergies. MEDICATIONS DEBLITANE 0.35 mg tablet Take 1 tablet by mouth once daily. No family history on file. Review of Systems Constitutional: Positive for fever. HENT: Positive for sore throat. All other systems reviewed and are negative. Objective Physical Exam Vitals and nursing note reviewed. Constitutional: Appearance: Normal appearance. HENT: Head: Normocephalic and atraumatic. Right Ear: Tympanic membrane, ear canal and external ear normal. Left Ear: Tympanic membrane, ear canal and external ear normal. Nose: Nose normal. Mouth/Throat: Mouth: Mucous membranes are dry. Pharynx: Oropharyngeal exudate (on right tonsilar pillar) and posterior oropharyngeal erythema present. Eyes: Pupils: Pupils are equal, round, and reactive to light. Cardiovascular: Rate and Rhythm: Normal rate and regular rhythm. Pulses: Normal pulses. Heart sounds: Normal heart sounds. No murmur heard. Pulmonary: Effort: Pulmonary effort is normal. Breath sounds: Normal breath sounds. Abdominal: General: Abdomen is flat. Palpations: Abdomen is soft. Musculoskeletal: General: Normal range of motion. Cervical back: Normal range of motion and neck supple. Tenderness (right) present. No rigidity. Lymphadenopathy: Cervical: Cervical adenopathy present. Skin: General: Skin is warm and dry. Capillary Refill: Capillary refill takes less than 2 seconds. Neurological: Mental Status: She is alert. Psychiatric: Mood and Affect: Mood normal. ASSESSMENT/PLAN: 1. Sorethroat - ICD9: 462, ICD10: J02.9 - Rapid Strep positive in the office today - antibiotic as written and Amoxicillin for 10 days. - Discussed supportive care treatment with fluids, rest and analgesia. - The patient may also use increase fluids . - Contagious dz precautions discussed- including considered contagious until on antibiotics for 24 hours - The patient should follow up in one day if symptoms persist or worsen Pt understands to start antibitoic today, if not improving in the next 24 hours needs to be seen - STREP A MOLECULAR (POC) Lore Kumar APRN.GEAR CUTTING MACHINE SET UP OPERATOR documented in this encounter [facility] 06-17-2022 Note HNO ID: [id number] Author: RT Hiren(R) Service: Radiology Author Type: Technologist Type: Progress Notes Filed: 06/17/2022 4:04 PM Note Text: Radiology Service Progress Note PATIENT NAME: Esther Jaimes DATE OF SERVICE: June 17, 2022 TIME: 4:04 PM PATIENT IDENTITY VERIFICATION COMPLETED USING TWO (2) IDENTIFIERS: Name and Date of confirmed by patient verbally and Name and Date of confirmed by identification band. FALL SCREENING: Has the patient had 2 falls in the last year or 1 fall with injury or currently using an Ambulatory Assistive Device (Walker, Cane, Wheelchair, Crutches, etc.)? No PATIENT GENDER DATA: Female. status: : No status: NO. PATIENT RELEVANT IMPLANT DATA REVIEWED: Not Applicable RADIOLOGY DEPARTMENT: General X-ray: Exam(s) Completed: Chest X-Ray PERIPHERAL IV DATA: Not applicable SIGNED BY: RT Hiren(R) June 17, 2022 4:04 PM [facility] 06-17-2022 Miscellaneous Notes Birthday verified with patient over the phone. Aware of the below information with all questions answered. Negative chest xray, no underlying pneumonia. documented in this encounter [facility] 06-17-2022 History of Presen t illness Narrative Radiology Service Progress Note PATIENT NAME: Esther Jaimes DATE OF SERVICE: June 17, 2022 TIME: 4:04 PM PATIENT IDENTITY VERIFICATION COMPLETED USING TWO (2) IDENTIFIERS: Name and Date of confirmed by patient verbally and Name and Date of confirmed by identification band. FALL SCREENING: Has the patient had 2 falls in the last year or 1 fall with injury or currently using an Ambulatory Assistive Device (Walker, Cane, Wheelchair, Crutches, etc.)? No PATIENT GENDER DATA: Female. status: : No status: NO. PATIENT RELEVANT IMPLANT DATA REVIEWED: Not Applicable RADIOLOGY DEPARTMENT: General X-ray: Exam(s) Completed: Chest X-Ray PERIPHERAL IV DATA: Not applicable SIGNED BY: RT Hiren(R) June 17, 2022 4:04 PM documented in this encounter [facility] 06-17-2022 Miscellaneous Notes Birthday verified with patient over the phone. Patient is at work and asking if it is okay if she stays as she has been like this for 4 weeks . Reviewed what patient reported yesterday with patient over the phone- worsening symptoms 2 days ago, that would be symptoms onset. Reviewed in depth that there are other viral illnesses that can cause URI symptoms which is likely what she had since the antibiotics prescribed didn't help initially. And now has flu A. Instructed to get chest xray done, if positive pneumonia she may start doxycycline. If negative pneumonia, do not take doxycycline as she has Flu A and doxycycline will not treat this. No further questions. Left a message, if a return call is made please review the previous message. Please call the patient and inform them that- Please be aware that your test was positive for influenza A. Your test was negative for COVID. Influenza or flu is a virus, and so, it cannot be treated with antibiotics. Please manage your symptoms with [id number] cough/sinus/fever care. You may return to work/school once you are without fever/chills/sweats/body aches for at least 24 hours without the aid of fever reducing medications. Please seek further medical care for any worsening symptoms or for fever lasting more than 5 days. Adrian Cortes PA-C documented in this encounter [facility] 06-16-2022 Influenza virus A and B RNA and SARS-CoV-2 (COVID-19) N gene panel WARNER+probe (Resp) COVID 19 RESULT: SARS-CoV-2 (Agent of COVID-19) Not Detected by RT-PCR or equivalent method. [id number] (MAR[employer])_EUA This test was developed and its performance characteristics determined by [facility]'s [facility] [place]. This test has been authorized by FDA under an Emergency Use Authorization (EUA). This test has been validated in accordance with the FDA's Guidance Document Policy for Diagnostics Testing in Laboratories Certified to Perform High Complexity Testing under CLIA prior to Emergency use Authorization for Coronavirus Disease 2019 during the Public Health Emergency issued on August 26, 2019. Test performed by [facility], [facility] [place], [address] [place] [address]. INFLUENZA A PCR: Positive for Influenza A by RT-PCR INFLUENZA B PCR: Negative for Influenza B by RT-PCR [facility] Diagnosis Body aches Generalized pain Acute cough [facility] Diagnosis Sorethroat- Primary Acute pharyngitis documented in this encounter [facility] Summary Purpose Family History No Family History Records FoundNo Family History Records FoundNo Family History Records Found Advance Directives No Advanced Directives Records FoundNo Advanced Directives Records FoundNo Advanced Directives Records Found Additional Source Comments Source Comments (unrecognize d section and content) In the event this informatio n is protected by the Federal Confidentiality of Alcohol and Drug Abuse Patient Records regulations: The Federal rules restrict any use of the information to criminally investigate or prosecute any alcohol or drug abuse patient.[facility] the event this information is protected by the Federal Confidentiality of Alcohol and Drug Abuse Patient Records regulations: The Federal rules restrict any use of the information to criminally investigate or prosecute any alcohol or drug abuse patient.[facility] the event this information is protected by the Federal Confidentiality of Alcohol and Drug Abuse Patient Records regulations: The Federal rules restrict any use of the information to criminally investigate or prosecute any alcohol or drug abuse patient.[facility] the event this information is protected by the Federal Confidentiality of Alcohol and Drug Abuse Patient Records regulations: The Federal rules restrict any use of the information to criminally investigate or prosecute any alcohol or drug abuse patient.[facility] the event this information is protected by the Federal Confidentiality of Alcohol and Drug Abuse Patient Records regulations: The Federal rules restrict any use of the information to criminally investigate or prosecute any alcohol or drug abuse patient.[facility] Reason for Visit (unrecogniz ed section and content) Reason Comments Results Reason Comments Fever woke up wit h he right side of her neck swollen. Later that day developed a fever. Since then has had fevers on and off, body aches and she feels her neck is more swollen INFORMATION SOURCE (unrecogn ized section and content) DATE CREATED AUTHOR AUTHOR'S ROBIN ATION 11/08/2022 [facility] DATE CREATED AUTHOR AUTHOR'S ORGANBERTHA ATION 05/18/2023 [facility] FOR RECORDS PERTAINING TO PATIENTS WHO ARE OR HAVE BEEN ENROLLED IN A CHEMICAL DEPENDENCY/SUBSTANCEABUSE PROGRAM, SOME INFORMATION MAY BE OMITTED. This clinical summary was aggregated from multiple sources. Caution should be exercised in using it in the provision of clinical care. This summary normalizes information from multiple sources, and as a consequence, information in this document may materially change the coding, format and clinical context of patient data. In addition, data may be omitted in some cases. CLINICAL DECISIONS SHOULD BE BASED ON THE PRIMARY CLINICAL RECORDS. [facility]. provides no warranty or guarantee of the accuracy or completeness of information in this document.
[2023-07-23 18:56] LABS: Group B Strep DNA By PCR Negative (Negative); Internal Control PASS; Probe Check PASS; Specimen Processing Control PASS
[2023-07-27 05:08] LABS: Chlamydia By Nucleic Acid AMP Negative (Negative); Gonococcus By Nucleic Acid AMP Negative (Negative)
== END | disposition home or self-care (01) ==
LOC: LABSPEC 16:59
PROVIDERS: Referring Provider Obstetrics & Gynecology; Visit Provider Obstetrics & Gynecology
DX: Z34.90 Encounter for supervision of normal pregnancy, unspecified, unspecified trimester (principal)
CPT/HCPCS: 87081; 87491; 87591; 87653

== ENCOUNTER 2023-08-02 14:58 | Inpatient (IN) | payer BC, SELFPAY ==
[2023-08-02] VITALS (63 sets, daily range): BP systolic 97–130; BP diastolic 57–88; PULSE 61–111; TEMP 36.5–37.4; O2SAT 90–100; BMI 24.0
--- OUTSIDE RECORDS SUMMARY | 2023-08-02 15:23 | XMS RPT_ITS | CCD ---
Author Name Unknown Address [address] [place] [address] Organization [facility] Care Team Providers Care Roasterman Name Role Phone Unavailable Primary Care Provider [...] 11-07-2022 08:18-0400 Body temperature 97.39 [degF] Walk [facility] 11-07-2022 08:18-0400 Body weight 54.88 kg Walk [facility] 11-07-2022 08:18-0400 Diastolic blood pressure 87 mm[Hg] Walk [facility] 11-07-2022 08:18-0400 Heart rate 117 /min Walk [facility] 11-07-2022 08:18-0400 Respiratory rate 18 /min Walk [facility] 11-07-2022 08:18-0400 SaO2% (BldA) [Mass fraction] 100 % Walk [facility] 11-07-2022 08:18-0400 Systolic blood pressure 120 mm[Hg] Walk [facility] 06-16-2022 18:20-0500 Body height 162.6 cm Adrianmonie Romeroaugh PA-C Work Phone: [facility] 06-16-2022 18:20-0500 Body temperature 99.7 [degF] Adrian Slabaugh PA-C Work Phone: [facility] 06-16-2022 18:20-0500 Body weight 64.41 kg Adrian Slabaugh PA-C Work Phone: [facility] 06-16-2022 18:20-0500 Diastolic blood pressure 76 mm[Hg] Adrian Slabaugh PA-C Work Phone: [facility] 06-16-2022 18:20-0500 Heart rate 103 /min Adrian Slabaugh PA-C Work Phone: [facility] 06-16-2022 18:20-0500 Respiratory rate 18 /min Adrian Slabaugh PA-C Work Phone: [facility] 06-16-2022 18:20-0500 SaO2% (BldA) [Mass fraction] 98 % Adrian Cortes PA-C Work Phone: [facility] 06-16-2022 18:20-0500 Systolic blood pressure 124 mm[Hg] Adrian Cortes PA-C Work Phone: [facility] Encounters Encounter Date Encounter Type Care Provider Facility Start: 05-17-2023 End: 05-17-2023 ambulatory NO PRIMARY CARE [facility] Start: 03-22-2023 End: 03-22-2023 ambulatory NO PRIMARY CARE [facility] Start: 11-07-2022 End: 11-07-2022 ambulatory Facility:[facility] Start: 11-07-2022 End: 11-07-2022 Patient encounter procedure [facility] Procedures Date Procedure Procedure Detail Performing Clinician Start: 11-07-2022 STREP A MOLECULAR (POC) Lore Kumar APRN.CNP Work Phone: Start: 06-17-2022 Radiologic exam ches t 2 views Adrian Cortes PA-C Work Phone: Plan of Treatment Date Care Activity Detail Author Start: 02-26-2023 Influenza vaccination INFLUENZA (Season Ended) [facility] Start: 06-28-2022 DEPRESSION ASSESSMENT DEPRESSION ASSESSMENT [facility] Start: 02-26-2022 Influenza vaccination INFLUENZA (#1) [facility] Start: 06-28-2021 DEPRESSION ASSESSMENT DEPRESSION ASSESSMENT [facility] Start: 2018 PAP TESTING PAP TESTING [facility] Start: 2016 Urine microalbumin profile DTAP,TDAP,TD (1 - Tdap) [facility] Start: 2015 HEPATITIS C SCREENING HEPATITIS C SCREENING [facility] Start: 2015 HIV SCREENING HIV SCREENING [facility] Start: 2011 PEDS TO ADULT TRANSITION ANNUAL ASSESSMENT PEDS TO ADULT TRANSITION ANNUAL ASSESSMENT [facility] Start: 2009 PEDS TO ADULT TRANSITION INITIAL DISCUSSION PEDS TO ADULT TRANSITION INITIAL DISCUSSION [facility] Start: 2008 HPV VACCINE (1 - 2-dose series) HPV VACCINE (1 - 2-dose series) [facility] Start: 1997 COVID-19 VACCINE (#1) COVID-19 VACCINE (#1) [facility] Start: 1997 HEPATITIS B (1 of 3 - 3-dose series) HEPATITIS B (1 of 3 - 3-dose series) [facility] Influenza virus A an d B RNA and SARS-CoV-2 (COVID-19) N gene panel - Respiratory specimen by WARNER with probe detection COVID WITH FLUA+B, ROUTINE Microbiology Routine Body aches Antibiotic treatment within past 2 months Ordered: 06/16/2022 [facility] Work Phone: Payers Date Payer Category Payer Unknown [employer]UE C[employer] PPO OOS [id number] 2020-Present [phone] [address] [place] [address] PPO [id number] 2020 Unknown [id number] 1997 Unknown [id number] 1997 Unknown [id number] Social History Date Type Detail Facility Start: 06-16-2022 Tobacco smoking stat [facility] Tobacco smoking consumption unknown [facility] Start: 1997 Sex Assigned At Not on file C [facility] Clinical Notes 04-16-2022 to 11-07-2022 Lore Kumar APRN.REPAIR ARMATURE WINDER - 11/07/2022 8:24 AM EDTTelephone Encounter - Sherry Zepeda APRN.LUI - 06/17/2022 5:21 PM RT Paulie(R) - 06/17/2022 4:15 PM ESTPatient Instructions Note Date & Type Note Facility 11-07-2022 Note HNO ID: [id number] Author: Lore Kumar APRN.REPAIR ARMATURE WINDER Service: ? Author Type: Nurse Practitioner Type: [...] - STREP A MOLECULAR (POC) Lore Kumar APRN.[facility] 11-07-2022 History of Presen t illness Narrative [...] - STREP A MOLECULAR (POC) Lore Kumar APRN.REPAIR ARMATURE WINDER documented in this encounter [facility] 06-17-2022 Note HNO ID: [id number] Author: RT Hiren(R) Service: Radiology Author Type: [...] RT Hiren(R) June 17, 2022 4:04 PM [facility] 06-17-2022 Miscellaneous Notes Birthday verified with patient over the phone. Aware of the below information with all questions answered. Negative chest xray, no underlying pneumonia. documented in this encounter [facility] 06-17-2022 History of Presen t illness [...] 2022 4:04 PM documented in this encounter [facility] 06-17-2022 Miscellaneous Notes Birthday verified with [...] with antibiotics. Please manage your symptoms with [id number] cough/sinus/fever care. You may return to work/school once you are without fever/chills/sweats/body aches for at least 24 hours without the aid of fever reducing medications. Please seek further medical care for any worsening symptoms or for fever lasting more than 5 days. Adrian Cortes PA-C documented in this encounter [facility] 06-16-2022 Influenza virus A and B RNA and SARS-CoV-2 (COVID-19) N gene panel WARNER+probe (Resp) COVID 19 RESULT: SARS-CoV-2 (Agent of COVID-19) Not Detected by RT-PCR or equivalent method. deo [id number] (MARLINE)_EUA This test was developed and its performance characteristics determined by [facility] [place]. This test has been authorized by FDA under an Emergency Use Authorization (EUA). This test has been validated in accordance with the FDA's Guidance Document Policy for Diagnostics Testing in Laboratories Certified to Perform High Complexity Testing under CLIA prior to Emergency use Authorization for Coronavirus Disease 2019 during the Public Health Emergency issued on August 26, 2019. Test performed by [facility], [facility] [place], [address] [place] [address]. INFLUENZA A PCR: Positive for Influenza A by RT-PCR INFLUENZA B PCR: Negative for Influenza B by RT-PCR [facility] Diagnosis Body aches Generalized pain Acute cough [facility] Diagnosis Sorethroat- Primary Acute pharyngitis documented in this encounter [facility] Summary Purpose Family History No Family [...] or prosecute any alcohol or drug abuse patient.[facility] HospitalIn the event this information is protected by the Federal Confidentiality of Alcohol and Drug Abuse Patient Records regulations: The Federal rules restrict any use of the information to criminally investigate or prosecute any alcohol or drug abuse patient.[facility] HospitalIn the event this information is protected by the Federal Confidentiality of Alcohol and Drug Abuse Patient Records regulations: The Federal rules restrict any use of the information to criminally investigate or prosecute any alcohol or drug abuse patient.[facility] HospitalIn the event this information is protected by the Federal Confidentiality of Alcohol and Drug Abuse Patient Records regulations: The Federal rules restrict any use of the information to criminally investigate or prosecute any alcohol or drug abuse patient.[facility] HospitalIn the event this information is protected by the Federal Confidentiality of Alcohol and Drug Abuse Patient Records regulations: The Federal rules restrict any use of the information to criminally investigate or prosecute any alcohol or drug abuse patient.[facility] Reason for Visit (unrecogniz ed section [...] DATE CREATED AUTHOR AUTHOR'S ROBIN ATION 11/08/2022 [facility] DATE CREATED AUTHOR AUTHOR'S ORGANBERTHA ATION 05/18/2023 [facility] FOR RECORDS PERTAINING TO PATIENTS WHO ARE [...] BE BASED ON THE PRIMARY CLINICAL RECORDS. [employer] [facility]. provides no warranty or guarantee of the accuracy or completeness of information in this document.
[2023-08-02] MEDS: LACTATED RINGERS 500 ML 999 ML IV (15:30)
[2023-08-02 15:44] LABS: Absolute Lymphocyte Count 1.58 X10^3/uL (0.83-4.51); Basophil# 0.05 X10^3/uL; Basophil% 0.4 % (0-1); Eosinophil# 0.02 X10^3/uL; Eosinophils% 0.2 % (0-5); Hematocrit 37.7 % (37-47); Hemoglobin 12.6 g/dL (12.0-15.0); Lymphocyte # 1.58 X10^3/ul (0.83-4.51); Lymphocyte % 13.7 % (19-41); Mean Corp Hgb Conc 33.4 g/dL (32-36); Mean Corpuscular Hgb 30.4 pg (27.0-32.0); Mean Corpuscular Volume 91.1 fL (81-99); Mean Platelet Vol. 9.6 fl (6.2-12.0); Monocyte% 6.9 % (0-10); NRBC Flagged by Analyzer 0 % (0-5); Platelet Count 187 K/mm3 (150-450); RBC Distribution Width CV 12.7 % (11.6-14.6); RBC Distribution Width SD 41.6 fl (35.1-43.9); Red Blood Count 4.14 M/mm3 (4.2-5.4); White Blood Count 11.5 K/mm3 (4.4-11.0)
[2023-08-02] MEDS: Lactated Ringers 1,000 ML 50 ML IV (16:01)
[2023-08-02] MEDS: fentaNYL-bupivacaine (epidural) 100 ML BAG EPIDURAL ×2 (16:43→20:48)
[2023-08-02 17:29] LABS: Syphilis Antibodies Non-reactive
--- NOTE | 2023-08-02 18:32 | HP.PCM.OB_ITS ---
HPI - General General Date of Admission: 08/02/23 HPI Narrative JACE MARTINEZ, is a 28 y/o @ 39 weeks 2 days who presents to l&d with pressure and found to be 5 cm dilated. The decision was made to augment her labor Maternal Data Information LOLA Calculator Estimated Delivery Date Method Current WG Current Estimate 08/07/23 LMP (Certain) 39w 2d PFSH PFSH Medical History Asthma Skin lesion Home Medications multivitamin no.47-iron fum 27 mg-folate no.1 1 mg-dha 300 mg capsule (PNV-DHA) 1 cap PO DAILY Check with primary doctor 08/21/20 [History Last Taken 1 Day Ago ~03/16/21] Allergy/AdvReac Type Severity Reaction Status Date / Time No Known Allergies Allergy Verified 08/02/23 14:45 Family History Mother Breast cancer, Onset Age: 36 BRAC was negative Surgical History No significant past surgical history Social History adopted: No household members: spouse housing: house current occupational status: employed current occupation: [employer] pets and animals: Yes Smoking Status: Never smoker second hand exposure: No alcohol intake: current alcohol intake frequency: holidays/special occasions only substance use type: does not use seatbelt use: always do you feel safe at home: Yes additional social history: - Erick ([employer] History 2 Elective abortions Hx Para 1 Spontaneous abortions Hx # Term Pregnancies Ectopic pregnancies Hx # Pregnancies Multiple births # of living children 1 Past Pregnancies Del. Date Name GA/Weeks Outcome Route Bth Weight Infant Gen Labor Lgth Anesthesia Del Locatn Provider FOB 03/18/21 Twila 39 live - full term Female epi dural [facility] Katerina Delivery Date: 03/18/21 Last Updated by: Marilu Menard admitted for ROM Visit Details Expected Delivery Route/Plan Labor Preferences- CB/BF classes: [] labor support person: [] labor intervention preferences: [] pain management options preferred: [] cut cord/dad catch: [] : [] PP control planned: [] discussed possible routes of delivery and associated risks: [] special requests: [] Plans Covid status: discussed Flu vaccine: discussed Tdap vaccine: [] Rhogam: needs LARC form signed: completed. Problem list reviewed and updated with the most current plan of care details and appropriate orders placed. Relevant counseling for the gestational age provided. Continue routine care and follow up unless otherwise noted in visit notes/problem list details OB Flowsheet Initial Weight: 122 lb Date -?-?-?-?-?-?-?-?-?-?-?-?- EGA Weight BP Urine Prot -?-?-?-?-?-?-?-?-?-?-?-?- Glucose FHR FuHt Pres Dilation -?-?-?-?-?-?-?-?-?-?-?-?- Effaced St Visit Note 01/11/23 -?-?-?-?-?-?-?-?-?-?-?-?- 10w 2d 122 lb 6 oz (+6 oz) 139/86 -?-?-?-?-?-?-?-?-?-?-?-?- -?-?-?-?-?-?-?-?-?-?-?-?- LC- bedside us C RL=25, not cw LMP. formal scan ordered for dating. LC- bedside us CRL=25, not c w LMP. formal scan ordered for dating. declines nipt. 02/11/23 -?-?-?-?-?-?-?-?-?-?-?-?- 14w 5d 122 lb 8 oz (+8 oz) 124/72 Negative -?-?-?-?-?-?-?-?-?-?-?-?- Negative -?-?-?-?-?-?-?-?-?-?-?-?- KW-vb/cramping. Had dating US at [facility]. FHT visualized on handheld US. Formal US ordered. no concerns today 03/15/23 -?-?-?-?-?-?-?-?-?-?-?-?- 19w 2d 125 lb 4 oz (+3 lb 4 oz) 94/68 94/59 -?-?-?-?-?-?-?-?-?-?-?-?- 150 -?-?-?-?-?-?-?-?-?-?-?-?- SM- no vb lof go od fm needs urine GCC, rest of labs PRR 04/15/23 -?-?-?-?-?-?-?-?-?-?-?-?- 23w 5d 131 lb 6 oz (+9 lb 6 oz) 125/79 Negative -?-?-?-?-?-?-?-?-?-?-?-?- Negative 150 23 -?-?-?-?-?-?-?-?-?-?-?-?- KW-no vb/lof/ctx . good fm. Discussed 28 week labs and rhogam. has follow up US for low lying placenta. 05/10/23 -?-?-?-?-?-?-?-?-?-?-?-?- 27w 2d 134 lb (+12 lb) 131/78 Negative -?-?-?-?-?-?-?-?-?-?-?-?- Negative 150 27 -?-?-?-?-?-?-?-?-?-?-?-?- LC- no lof/vb/ct x. good fm. has ultrasound on wednesday for f/u placenta. 05/28/23 -?-?-?-?-?-?-?-?-?-?-?-?- 29w 6d 136 lb (+14 lb) 100/68 Negative -?-?-?-?-?-?-?-?-?-?-?-?- Negative 150 28 -?-?-?-?-?-?-?-?-?-?-?-?- KW-no vb/lof/ctx . good fm. Placenta resolved. KW-no vb/lof/ctx. good fm. P lacenta resolved. 28 week labs and Rhogam today. 06/11/23 -?-?-?-?-?-?-?-?-?-?-?-?- 31w 6d 135 lb (+13 lb) 111/67 Negative -?-?-?-?-?-?-?-?-?-?-?-?- Negative 140 30 -?-?-?-?-?-?-?-?-?-?-?-?- JV- no lof, vagi nal bleeding, or dec fm. normal 28 week labs. 06/25/23 -?-?-?-?-?-?-?-?-?-?-?-?- 33w 6d 137 lb 2 oz (+15 lb 2 oz) 108/74 -?-?-?-?-?-?-?-?-?-?-?-?- 150 33 -?-?-?-?-?-?-?-?-?-?-?-?- LC- no lof/vb/ct x. good fm. no concerns. breast pump ordered. 07/09/23 -?-?-?-?-?-?-?-?-?-?-?-?- 35w 6d 141 lb 6 oz (+19 lb 6 oz) 119/85 Negative -?-?-?-?-?-?-?-?-?-?-?-?- Negative 135 36 Cephalic -?-?-?-?-?-?-?-?-?-?-?-?- LC- no concerns. no vb/ctx/lof. good fm. has cold/congestion. safe medications reviewed. will take at home covid test to ensure doesn't need to start ASA> 07/23/23 -?-?-?-?-?-?-?-?-?-?-?-?- 37w 6d 143 lb (+21 lb) 110/68 Negative -?-?-?-?-?-?-?-?-?-?-?-?- Negative 135 38 Cephalic 3 .5 -?-?-?-?-?-?-?-?-?-?-?-?- 70 -3 SM- bedsid e ultrasound doen to confirm vertex. no vb lof good fm gcc collected and gbs 07/30/23 -?-?-?-?-?-?-?-?-?-?-?-?- 38w 6d 143 lb 8 oz (+21 lb 8 oz) 125/88 Negative -?-?-?-?-?-?-?-?-?-?--?-?- Negative 166 37 Cephalic 4 -?-?-?-?-?-?-?-?-?-?-?-?- 80 -2 JV- no lof , vaginal bleeding, or dec fm. membranes are bulging. Hesitant to swipe membranes as this could rupture water. labor precautions discussed. ROS Constitutional Constitutional: Denies change in weight, fatigue, fever(s), headache(s), poor appetite or weakness Eyes Eyes: Denies blurry vision, change in vision, seeing flashes or spots in vision ENT HEENT: Denies dizziness, headache(s), loss taste/smell or sore throat Cardiovascular Cardiovascular: Denies chest pain, dizziness, dyspnea, irregular heart rhythm, leg edema, palpitations, rapid heart rate or vomiting Respiratory/Chest Respiratory/Chest: Denies chest tightness, cough, dyspnea or breast pain Gastrointestinal Gastrointestinal: Denies abdominal pain, anorexia, constipation, cramping, diarrhea, hemorrhoids, vomiting or weight changes Genitourinary Genitourinary: Denies dysuria, flank pain, genital lesions, genital pain, urinary frequency or urinary urgency Musculoskeletal Musculoskeletal: Denies back pain, difficulty walking, joint pain, limited range of motion, muscle cramps or numbness Integumentary Integumentary: Denies lesions or unusual bruising Neurologic Neurologic: Denies abnormal movements, abnormal speech, dizziness, numbness, seizure-like activity or syncope Psychiatric Psychiatric: Denies anxiety, behavioral changes, change in appetite, change in libido, cognitive impairment, confusion, depression, difficulty concentrating, hallucinations or suicidal thoughts Endocrine Endocrinology: Denies excessive sweating, polydipsia or polyuria Hematologic/Lymphatic Hematologic/Lymphatic: Denies easy bleeding, easy bruising or lymphadenopathy Allergic/Immunologic Allergic/Immunologic: Denies itchy eyes, lip swelling, seasonal rhinorrhea, rhinitis, throat swelling, tongue swelling, eczemia, wheezing or asthma Vital Signs Vital Signs Vital Signs: 08/02/23 14:21 08/02/23 14:21 08/02/23 14:22 Temperature Temperature Source Pulse Rate 94 91 Blood Pressure 127/88 H BP Systolic 127 BP Diastolic 88 Pulse Ox 08/02/23 14:22 08/02/23 14:22 08/02/23 14:22 Temperature Temperature Source Temporal Pulse Rate 86 Blood Pressure BP Systolic BP Diastolic Pulse Ox 100 08/02/23 14:22 08/02/23 14:22 08/02/23 16:21 Temperature 99.3 F H Temperature Source Pulse Rate Blood Pressure 119/78 BP Systolic 119 BP Diastolic 78 Pulse Ox 100 08/02/23 16:21 08/02/23 16:21 08/02/23 16:21 Temperature Temperature Source Temporal Pulse Rate 76 69 Blood Pressure BP Systolic BP Diastolic Pulse Ox 08/02/23 16:21 08/02/23 16:21 08/02/23 16:28 Temperature 99.4 F H Temperature Source Pulse Rate Blood Pressure BP Systolic BP Diastolic Pulse Ox 100 90 08/02/23 16:30 08/02/23 16:30 08/02/23 16:35 Temperature Temperature Source Pulse Rate 88 111 H Blood Pressure BP Systolic BP Diastolic Pulse Ox 100 08/02/23 16:35 08/02/23 16:37 08/02/23 16:37 Temperature Temperature Source Pulse Rate 83 Blood Pressure 130/84 H BP Systolic 130 BP Diastolic 84 Pulse Ox 100 08/02/23 16:38 08/02/23 16:38 08/02/23 16:40 Temperature Temperature Source Pulse Rate 84 85 Blood Pressure BP Systolic BP Diastolic Pulse Ox 91 08/02/23 16:40 08/02/23 16:42 08/02/23 16:42 Temperature Temperature Source Pulse Rate 80 Blood Pressure 117/79 BP Systolic 117 BP Diastolic 79 Pulse Ox 100 08/02/23 16:45 08/02/23 16:45 08/02/23 16:47 Temperature Temperature Source Pulse Rate 85 Blood Pressure 114/75 BP Systolic 114 BP Diastolic 75 Pulse Ox 100 08/02/23 16:47 08/02/23 16:50 08/02/23 16:50 Temperature Temperature Source Pulse Rate 87 78 Blood Pressure BP Systolic BP Diastolic Pulse Ox 100 08/02/23 16:47 08/02/23 16:53 08/02/23 16:53 Temperature Temperature Source Temporal Pulse Rate 81 Blood Pressure 122/78 H BP Systolic 122 BP Diastolic 78 Pulse Ox 08/02/23 16:47 08/02/23 16:55 08/02/23 16:55 Temperature 98.3 F Temperature Source Pulse Rate 75 Blood Pressure BP Systolic BP Diastolic Pulse Ox 100 08/02/23 16:57 08/02/23 16:57 08/02/23 17:00 Temperature Temperature Source Pulse Rate 80 76 Blood Pressure 114/71 BP Systolic 114 BP Diastolic 71 Pulse Ox 08/02/23 17:00 08/02/23 17:03 08/02/23 17:03 Temperature Temperature Source Pulse Rate 80 Blood Pressure 121/78 H BP Systolic 121 BP Diastolic 78 Pulse Ox 100 08/02/23 17:05 08/02/23 17:05 08/02/23 17:07 Temperature Temperature Source Pulse Rate 88 Blood Pressure 116/73 BP Systolic 116 BP Diastolic 73 Pulse Ox 100 08/02/23 17:07 08/02/23 17:10 08/02/23 17:10 Temperature Temperature Source Pulse Rate 61 79 Blood Pressure BP Systolic BP Diastolic Pulse Ox 100 08/02/23 17:14 08/02/23 17:14 08/02/23 17:21 Temperature Temperature Source Pulse Rate 91 Blood Pressure 102/63 97/59 L BP Systolic 102 97 BP Diastolic 63 59 Pulse Ox 08/02/23 17:21 08/02/23 18:13 08/02/23 18:13 Temperature Temperature Source Pulse Rate 78 96 Blood Pressure 108/69 BP Systolic 108 BP Diastolic 69 Pulse Ox 08/02/23 18:13 08/02/23 18:13 08/02/23 18:13 Temperature Temperature Source Temporal Pulse Rate 96 Blood Pressure BP Systolic BP Diastolic Pulse Ox 100 08/02/23 18:13 Temperature 98.9 F Temperature Source Pulse Rate Blood Pressure BP Systolic BP Diastolic Pulse Ox Weight Weight: 144 lb 2 oz Body Mass Index (BMI) 24.0 Physical Exam Const alert, oriented x3, no apparent distress and healthy appearing General Appearance: cooperative; Negative for anxious HEENT normocephalic Face and Sinus: normal facial exam Eyes EOMs intact bilaterally and no scleral icterus General Eye: normal appearance of both eyes Neck full ROM and supple Lymph Lymphatic: no lymphadenopathy noted Chest Chest: abnormal inspection of the chest Resp normal respiratory effort Effort and Inspection: able to speak in complete sentences Cardio regular rate GI soft to palpation and non-tender Inspection: gravid Palpation: soft; Negative for tender external exam normal Amniotic Fluid: ROM+plus Back/Spine no CVA tenderness Extremity normal to inspection, full ROM and no clubbing, cyanosis or edema General Extremity: Negative for calf tenderness or edema Skin Lesions: no lesions Rashes: no rashes Psych mental status grossly normal Labs Labs Labs: Blood Type A NEGATIVE Antibody Screen NEGATIVE Hct 37.7 % (37-47) Hgb 12.6 g/dL (12.0-15.0) Syphilis Total Ab Non-reactive VZV IgG Antibody 717 index (Immune >165) Rubella IgG Antibody Reactive (Nonreactive) Hep Bs Antigen Non-Reactive (Nonreactive) Hepatitis C Antibody Non-Reactive (Nonreactive) Chlamydia DNA (WARNER) Negative (Negative) N.gonorrhoeae DNA (WARNER) Negative (Negative) HIV 1&2 Antibody Non-Reactive (Nonreactive) Glucose 1 Hr 50 gm 129 mg/dL (70-140) Group B Strep DNA Negative (Negative) Assessment & Plan (1) Rh negative status during : QUALIFIERS: Trimester: third trimester Qualified Code(s): O26.893 - Other specified related conditions, third trimester; Z67.91 - Unspecified blood type, Rh negative COMMENT: rhogam at 28 weeks and PRN bleeding. (2) : QUALIFIERS: Weeks of gestation: 38 weeks Qualified Code(s): Z3A.38 - 38 weeks gestation of COMMENT: Neg GBS Declines NIPT/Carrier/ntd screen. NL anatomy (3) Supervision of normal : COMMENT: PRR LOLA 08/07/23 MEETA Mattson. -Erick (4) Asthma: QUALIFIERS: Asthma severity: mild Asthma persistence: intermittent Asthma complication type: uncomplicated Qualified Code(s): J45.20 - Mild intermittent asthma, uncomplicated COMMENT: no active symptoms, resolved since age 15 PLAN: Plan Patient presents IOL, plan management for with pitocin/AROM. Pain management: plans epidural. GBS negative. Management of any complications: none I have reviewed the [facility] and made any clinically relevant updates.
[2023-08-02] MEDS: Lactated Ringers 1,000 ML 200 ML IV (19:36)
[2023-08-02] MEDS: Oxytocin 15 Units/NS 250ml 15 UNITS/250 ML IV.SOLN 2 UNITS IV (20:23)
--- NOTE | 2023-08-02 21:59 | EX.PCM.OBRPT ---
Assessment & Plan (1) Rh negative status during : QUALIFIERS: Trimester: third trimester Qualified Code(s): O26.893 - Other specified related conditions, third trimester; Z67.91 - Unspecified blood type, Rh negative COMMENT: rhogam at 28 weeks and PRN bleeding. (2) : QUALIFIERS: Weeks of gestation: 38 weeks Qualified Code(s): Z3A.38 - 38 weeks gestation of COMMENT: Neg GBS Declines NIPT/Carrier/ntd screen. NL anatomy (3) Supervision of normal : COMMENT: PRR LOLA 08/07/23 MEETA Mattson. -Erick (4) Asthma: QUALIFIERS: Asthma severity: mild Asthma persistence: intermittent Asthma complication type: uncomplicated Qualified Code(s): J45.20 - Mild intermittent asthma, uncomplicated COMMENT: no active symptoms, resolved since age 15 Maternal Data Information LOLA Calculator Estimated Delivery Date Method Current WG Current Estimate 08/07/23 LMP (Certain) 39w 2d Final LOLA: 08/07/23 Final LOLA Source: LMP Gestational age: 39 weeks 2 days Vaginal Delivery Maternal Presentation Maternal Presentation: Elective Induction Maternal Presentation: patient presented to L&D 5 cm dilated and feeling pressure. Type of Induction: Pitocin and Amniotomy Operative Information Date of Procedure: 08/02/23 Pre-Operative Diagnosis: 28 y/o @ 39 weeks 2 days, advanced cervical dilation Post-Operative Diagnosis: 28 y/o @ 39 weeks 2 days, advanced cervical dilation Surgery / Procedure Performed: Spontaneous Vaginal Delivery Type of Anesthesia: Epidural Drain: Thompson to straight drain Estimated Blood Loss: 100cc Time of Delivery: 21:51 Findings Description of Procedure: Patient began pushing and delivered the head in the TRUNG presentation. The head was delivered atraumatically. A loose nuchal cord was reduced without difficulty. The anterior and posterior shoulders delivered without complication followed by the rest of the infant and the was placed on the maternal abdomen. Delayed cord clamping was employed for approximately 60 seconds. Cord was clamped and cut and gentle traction was applied to the cord and the placenta delivered spontaneously immediately following it was noted to be intact with three-vessel cord. The perineum and vagina were inspected and noted to be intact. EBL was 100 cc. Patient and infant tolerated delivery well. Presentation: Vertex Amniotic Membrane Rupture Type: Spontaneous Amniotic Fluid Description: Clear Placental Delivery Description: Spontaneous Placenta Disposition: [facility] Cord Vessel Description: 3 Vessels Cord Entanglement: Around neck x 1, loose Nuchal Cord Compression: Without compression Infant A Gender: Male (1 minute): 8 (5 minute): 9 Delayed Cord Clamping: Yes Post Vaginal Delivery Medications Given After Delivery: IV Pitocin Episiotomy Description: None Laceration: None Complication Complications: None Multi Select Codes Urinary/Genital Urinary/Genital CPT Codes: 83171 Vaginal Delivery [facility]
--- NOTE | 2023-08-02 22:02 | DCINST_ITS ---
Discharge Instructions Diet Discharge Diet: No restrictions Activity Discharge Activity: Return to Normal Activity, May Shower and May Take a Tub Bath (after 1 week) May resume sexual activity in: 1-2 weeks Weight Bearing Status: Weight bearing as tolerated Lifting Restrictions: none Dressing / Incision Call your doctor if you observe: Fever of 101 or Higher, Using more than 1 pad per hour, Shortness of breath and Uncontrolled pain Follow Up Care Please Follow Up With: Amanda Reagan DO When: Call [phone] to schedule appointment. Test Results: Test results from this visit will be discussed in further detail at your follow- up appointment, if applicable. Discharge Plan Admission Admit Date/Time: 08/02/23 14:58 Attending Provider: mAanda Reagan Primary Care Provider: Care Physician,Lynne Primary Discharge Orders/Prescriptions Prescriptions: No Action PNV-DHA 27 mg iron-1 mg -300 mg capsule 1 cap PO DAILY Referrals / Follow Up: Care Physician,No Primary [Primary Care Provider] -
[2023-08-02] MEDS: Oxytocin 15 Units/NS 250ml 15 UNITS/250 ML IV.SOLN 83 UNITS IV (22:26)
[2023-08-02] MEDS: Methylergonovine 0.2 MG/ML Ampul 0.200000000000000011 MG IM (22:38)
[2023-08-02] MEDS: Ondansetron 4 MG/2 ML Vial IV (22:58)
[2023-08-03] VITALS (7 sets, daily range): BP systolic 106–123; BP diastolic 59–80; PULSE 54–79; RESP 16–20; TEMP 36.5–37.4; O2SAT 98–99
[2023-08-03] MEDS: 0.9% Saline Lock 10 ML Syringe IV (01:20)
[2023-08-03] MEDS: Naproxen 500 MG Tablet PO ×2 (03:47→11:17)
--- NOTE | 2023-08-03 08:00 | PCM.PN.OB ---
Subjective Subjective Patient doing well without complaints. Tolerating PO. Ambulating and voiding without difficulty. Feeding well. Denies chest pain, shortness of breath, calf pain/swelling, fevers, chills, lightheadedness. Objective Data Objective Data Vital Signs: Vital Signs Temp Pulse Resp BP Pulse Ox O2 Del Method 99.3 F H 69 20 H 106/59 L 98 Room Air 08/03/23 03:49 08/03/23 03:49 08/03/23 03:49 08/03/23 03:49 08/03/23 03:49 08/03/23 03:49 Oxygen Delivery Method Room Air Weight: 144 lb 2 oz Body Mass Index (BMI) 24.0 Intake & Output: Intake and Output for Last 24 Hours 08/01/23 08/02/23 08/03/23 23:59 23:59 23:59 Intake Total 1315.94 / 1315.94 250 / 250 Output Total 500 / 500 1000 / 1000 Balance 815.94 / 815.94 -750 / -750 Lab / Micro Data Attestation: I reviewed the patient's lab results. 08/02/23 15:30 Labs: Laboratory Results - last 24 hr 08/02/23 15:30: WBC 11.5 H, RBC 4.14 L, Hgb 12.6, Hct 37.7, MCV 91.1, MCH 30.4, MCHC 33.4, RDW Std Deviation 41.6, RDW Coeff of Benny 12.7, Plt Count 187, MPV 9.6, Immature Gran % (Auto) 0.800, Neut % (Auto) 78.0 H, Lymph % (Auto) 13.7 L, [place] % (Auto) 6.9, Eos % (Auto) 0.2, Baso % (Auto) 0.4, Absolute Neuts (auto) 9.0 H, Absolute Lymphs (auto) 1.58, Nucleated RBC % 0, Syphilis Total Ab Non-reactive, Blood Type A NEGATIVE, Antibody Screen NEGATIVE ROS Constitutional Constitutional: Reports systems reviewed and no addt'l complaints, except as documented; Denies anorexia or headache(s) Cardiovascular Cardiovascular: Reports systems reviewed and no addt'l complaints, except as documented; Denies dizziness, dyspnea, nausea or tachypnea Respiratory/Chest Respiratory/Chest: Reports systems reviewed and no addt'l complaints, except as documented; Denies cough, dyspnea, shortness of breath at rest or tachypnea Gastrointestinal Gastrointestinal: Reports systems reviewed and no addt'l complaints, except as documented; Denies abdominal pain, constipation or nausea Genitourinary Genitourinary: Reports systems reviewed and no addt'l complaints, except as documented; Denies burning urination, difficulty urinating, dysuria, urinary frequency or urinary incontinence Musculoskeletal Musculoskeletal: Reports systems reviewed and no addt'l complaints, except as documented Integumentary Integumentary: Reports systems reviewed and no addt'l complaints, except as documented Neurologic Neurologic: Reports systems reviewed and no addt'l complaints, except as documented; Denies abnormal speech, dizziness or headache(s) Psychiatric Psychiatric: Reports systems reviewed and no addt'l complaints, except as documented Endocrine Endocrinology: Reports systems reviewed and no addt'l complaints, except as documented Hematologic/Lymphatic Hematologic/Lymphatic: Reports systems reviewed and no addt'l complaints, except as documented Physical Exam Const alert, oriented x3 and no apparent distress Neck full ROM Resp normal respiratory effort, normal air movement and no retractions Effort and Inspection: able to speak in complete sentences and symmetric chest movement GI soft to palpation Bladder / Kidney Exam: bladder normal to palpation Uterus Palpation: uterus fundus Extremity normal to inspection and full ROM Psych mental status grossly normal, thought process normal and cooperative Assessment & Plan (1) Rh negative status during : QUALIFIERS: Trimester: third trimester Qualified Code(s): O26.893 - Other specified related conditions, third trimester; Z67.91 - Unspecified blood type, Rh negative COMMENT: rhogam at 28 weeks and PRN bleeding. (2) : QUALIFIERS: Weeks of gestation: 38 weeks Qualified Code(s): Z3A.38 - 38 weeks gestation of COMMENT: Neg GBS Declines NIPT/Carrier/ntd screen. NL anatomy (3) Supervision of normal : COMMENT: PRR LOLA 08/07/23 MEETA Mattson. -Erick (4) Asthma: QUALIFIERS: Asthma severity: mild Asthma persistence: intermittent Asthma complication type: uncomplicated Qualified Code(s): J45.20 - Mild intermittent asthma, uncomplicated COMMENT: no active symptoms, resolved since age 15 (5) Vaginal delivery: COMMENT: JV PLAN: s/p PPD # 1. routine post delivery care 2. breast feeding- support given 3. rh neg-rhogam if needed 4. rubella immune Charges/Coding Multi Select Codes Urinary/Genital Urinary/Genital CPT Codes: No Charge
[2023-08-03] MEDS: Senna/Docusate Sodium 1 Tablet PO (11:27)
--- NOTE | 2023-08-04 07:48 | PCM.PN.OB ---
Subjective Subjective Patient doing well without complaints. Tolerating PO. Ambulating and voiding without difficulty. Feeding well. Denies chest pain, shortness of breath, calf pain/swelling, fevers, chills, lightheadedness. Objective Data Objective Data Vital Signs: Vital Signs Temp Pulse Resp BP Pulse Ox O2 Del Method 97.8 F 54 L 16 114/67 99 Room Air 08/03/23 23:55 08/03/23 23:55 08/03/23 23:55 08/03/23 23:55 08/03/23 23:55 08/03/23 23:55 Oxygen Delivery Method Room Air Weight: 144 lb 2 oz Body Mass Index (BMI) 24.0 Intake & Output: Intake and Output for Last 24 Hours 08/02/23 08/03/23 08/04/23 23:59 23:59 23:59 Intake Total 1315.94 / 1315.94 250 / 250 Output Total 500 / 500 1800 / 1800 Balance 815.94 / 815.94 -1550 / -1550 Lab / Micro Data 08/02/23 15:30 Physical Exam Const alert and oriented x3 HEENT normocephalic Eyes PERRL Neck full ROM Resp normal respiratory effort GI soft to palpation GI Narrative: FF below U Assessment & Plan (1) Spontaneous vaginal delivery: COMMENT: 08/02/23 Boy Renea VERONICA PLAN: Plan s/p PPD # 2 1. routine post delivery care 2. breast feeding- support given 3. rh negative 4. rubella immune 5. home today
[2023-08-04 08:11] VITALS: BP 117/73; PULSE 68; RESP 16; TEMP 36.7; O2SAT 99
== END 2023-08-04 09:31 | disposition home or self-care (01) | DRG 807 ==
LOC: WPOUT 14:59 → WP 14:59
PROVIDERS: Admitting Provider Obstetrics & Gynecology; Referring Provider Obstetrics & Gynecology; Visit Provider Obstetrics & Gynecology
DX: O34.33 Maternal care for cervical incompetence, third trimester (principal); Z37.0 Single live birth; J45.20 Mild intermittent asthma, uncomplicated; O69.81X0 Labor and delivery complicated by cord around neck, without compression, not applicable or unspecified; O99.52 Diseases of the respiratory system complicating childbirth; Z67.91 Unspecified blood type, Rh negative; Z3A.39 39 weeks gestation of pregnancy
CPT/HCPCS: 59025; 59050; 85025; 86780; 86850; 86900; 86901; 99221; J7120; A4216; G0378; J2405

== ENCOUNTER → 2023-09-15 | Outpatient (CLI) | payer BC, SELFPAY ==
[2023-09-20 19:21] LABS: HPV Reflexed? NOT INDICATED
== END | disposition home or self-care (01) ==
PROVIDERS: Referring Provider Obstetrics & Gynecology; Visit Provider Obstetrics & Gynecology
DX: Z12.4 Encounter for screening for malignant neoplasm of cervix (principal)
CPT/HCPCS: 88175; G0145